=== PATIENT | male | born 1960 | race Hispanic/Latino ===

== ENCOUNTER 2016-09-04 04:42 | Emergency (ER) | payer OTHER, SELFPAY ==
[2016-09-04] MEDS ORDERED: Ibuprofen 800 MG TAB ONE (05:15)
--- NOTE | 2016-09-04 09:29 | RAD ---
LEFT FOOT 3 VIEWS: DATE: 09/04/16. FINDINGS: Some soft tissue swelling is suggested medially. No fracture was identified. All bones appeared in tact. IMPRESSION: No acute bony finding. POS: HOME
== END 2016-09-04 05:21 | disposition home or self-care (01) ==
LOC: BURERS 04:42
DX: S93.602A Unspecified sprain of left foot, initial encounter (principal); I10 Essential (primary) hypertension; F17.210 Nicotine dependence, cigarettes, uncomplicated; Z79.899 Other long term (current) drug therapy; W01.0XXA Fall on same level from slipping, tripping and stumbling without subsequent striking against object, initial encounter

== ENCOUNTER 2016-09-27 06:22 | Emergency (ER) | payer SELFPAY ==
[2016-09-27] MEDS ORDERED: Ibuprofen 800 MG TAB ONE (06:44)
== END 2016-09-27 06:52 | disposition home or self-care (01) ==
LOC: BURERS 06:22
DX: I10 Essential (primary) hypertension (principal); F17.210 Nicotine dependence, cigarettes, uncomplicated
CPT/HCPCS: 99283

== ENCOUNTER 2017-06-03 02:57 | Emergency (ER) | payer SELFPAY ==
[2017-06-03] MEDS ORDERED: diphenhydrAMINE 25 MG CAP ONE (03:13)
[2017-06-03] MEDS ORDERED: predniSONE 20 MG TAB ONE (03:13)
== END 2017-06-03 03:17 | disposition home or self-care (01) ==
LOC: BURERS 02:57
DX: L50.9 Urticaria, unspecified (principal); I10 Essential (primary) hypertension; F17.210 Nicotine dependence, cigarettes, uncomplicated; Z79.899 Other long term (current) drug therapy
CPT/HCPCS: 99284; J7506

== ENCOUNTER 2018-06-09 20:57 | Emergency (ER) | payer BC, OTHER ==
[2018-06-09] MEDS ORDERED: Dexamethasone 4 MG TAB ONE (21:19)
[2018-06-09] MEDS ORDERED: Azithromycin 250 MG TAB ONE (21:19)
== END 2018-06-09 21:25 | disposition home or self-care (01) ==
LOC: BURERS 20:57
DX: J20.9 Acute bronchitis, unspecified (principal); I10 Essential (primary) hypertension; F17.210 Nicotine dependence, cigarettes, uncomplicated; Z79.899 Other long term (current) drug therapy
CPT/HCPCS: 99283; J8540

== ENCOUNTER 2019-01-07 17:47 | Emergency (ER) | payer OTHER | END 2019-01-07 18:22 | disposition home or self-care (01) | LOC: BURERS 17:47 | DX: M70.52 Other bursitis of knee, left knee (principal); I10 Essential (primary) hypertension; Z87.891 Personal history of nicotine dependence; Z79.899 Other long term (current) drug therapy | CPT/HCPCS: 99283 ==

== ENCOUNTER 2021-07-04 02:57 | Emergency (ER) | payer OTHER ==
[2021-07-04] MEDS ORDERED: Ibuprofen 800 MG TAB ONE (03:24)
[2021-07-04] MEDS ORDERED: Triamcinolone 40 MG/ML VIAL ONE ×2 (04:17→04:19)
[2021-07-05 14:14] LABS: SARS-CoV-2 PCR by NAA Not Detected (NotDetected)
== END 2021-07-04 04:30 | disposition home or self-care (01) ==
LOC: BURERS 02:57
DX: J98.01 Acute bronchospasm (principal); J06.9 Acute upper respiratory infection, unspecified; Z20.822 Contact with and (suspected) exposure to COVID-19; E11.9 Type 2 diabetes mellitus without complications; E78.5 Hyperlipidemia, unspecified; I10 Essential (primary) hypertension
CPT/HCPCS: 36416; 71045; 87804; 96372; J3301; U0003; U0005

== ENCOUNTER 2022-10-13 18:45 | Emergency (ER) | payer OTHER ==
[2022-10-13] MEDS ORDERED: HYDROcodone/Acetaminophen 5/325 mg Tablet ONE (19:10)
== END 2022-10-13 19:45 | disposition home or self-care (01) ==
LOC: BURERS 18:45
DX: S82.401A Unspecified fracture of shaft of right fibula, initial encounter for closed fracture (principal); E11.9 Type 2 diabetes mellitus without complications; E78.5 Hyperlipidemia, unspecified; I10 Essential (primary) hypertension; Z79.84 Long term (current) use of oral hypoglycemic drugs; Z79.899 Other long term (current) drug therapy; X50.1XXA Overexertion from prolonged static or awkward postures, initial encounter

== ENCOUNTER 2024-01-11 00:33 | Emergency (ER) | payer MEDICARE, OTHER ==
[2024-01-11] MEDS ORDERED: traMADol HCl 50 MG TAB ONE (01:22)
== END 2024-01-11 01:28 | disposition home or self-care (01) ==
LOC: BURERS 00:33
DX: J44.1 Chronic obstructive pulmonary disease with (acute) exacerbation (principal); T50.905A Adverse effect of unspecified drugs, medicaments and biological substances, initial encounter; I10 Essential (primary) hypertension; E11.40 Type 2 diabetes mellitus with diabetic neuropathy, unspecified; F17.210 Nicotine dependence, cigarettes, uncomplicated
CPT/HCPCS: 71046; 93005